=== PATIENT | female | born 1990 | race Hispanic/Latino ===

== ENCOUNTER 2017-11-21 22:18 | Inpatient (IN) | payer MEDICAID ==
[2017-11-21 23:08] LABS: BASO % 0.3 % (0.0-2.0); EOS % 0.2 % (0.0-4.0); HEMOGLOBIN 12.8 g/dL (11.0-16.0); LYMPH # 1.6 K/uL (1.0-4.3); MEAN CORPUSCULAR HEMOGLOBIN 30.6 pg (27.0-31.0); MEAN CORPUSCULAR HGB CONC 35.2 g/dL (33.0-37.0); MEAN PLATELET VOLUME 8.3 fL (7.2-11.7); MONO # 0.4 K/uL (0.0-0.8); MONO % 7.5 % (0.0-10.0); RBC 4.19 Mil/uL (3.80-5.20); RED CELL DISTRIBUTION WIDTH 12.7 % (11.5-14.5)
[2017-11-21 23:13] LABS: SQUAMOUS EPITHIAL 3 /hpf (0-5); URINE BACTERIA RARE (<OCC); URINE BILIRUBIN NEGATIVE (NEGATIVE); URINE BLOOD NEGATIVE (NEGATIVE); URINE CLARITY Clear (Clear); URINE COLOR Yellow (YELLOW); URINE GLUCOSE (UA) NORMAL (Normal); URINE LEUKOCYTE ESTERASE NEG Leu/uL (Negative); URINE PROTEIN NEGATIVE (NEGATIVE); URINE UROBILINOGEN NORMAL mg/dL (0.2-1.0)
[2017-11-21 23:14] LABS: HCG,QUALITATIVE URINE NEGATIVE (NEGATIVE)
[2017-11-21 23:31] LABS: ALB/GLOB RATIO 1.5 (1.0-2.1); ALBUMIN 4.4 g/dL (3.5-5.0); ALT/SGPT 26 U/L (9-52); AST/SGOT 20 U/L (14-36); BLOOD UREA NITROGEN 10 mg/dL (7-17); CALCIUM 9.7 mg/dl (8.6-10.4); GFR NON-AFRICAN AMERICAN > 60
[2017-11-21 23:36] LABS: BARBITURATES, UR NEGATIVE (NEGATIVE); PHENCYCLIDINE, UR NEGATIVE (NEGATIVE)
[2017-11-21 23:37] LABS: BENZODIAZEPINES, UR POSITIVE (NEGATIVE); OPIATES, UR POSITIVE (NEGATIVE)
--- NOTE | 2017-11-22 00:54 | C.PDOC ---
History Of Present Illness 27 year old female presents to the ED requesting detox for heroin abuse. 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 Patient denies SI/HI, hallucinations, CP, SOB. Time Seen by Provider: 11/21/17 22:36 Chief Complaint (Nursing): Substance Abuse History Per: Patient History/Exam Limitations: no limitations Onset/Duration Of Symptoms: Hrs Current Symptoms Are (Timing): Still Present Suicide/Self Injury Attempted (Context): None Modifying Factor(s): Other (Heroin) Associated Symptoms: denies: Depression, Suicidal Thoughts, Suicidal Plan Recent travel outside of the [place]: No Additional History Per: Patient Past Medical History Reviewed: Historical Data, Nursing Documentation, Vital Signs Vital Signs: Last Vital Signs Temp 98.2 F 11/21/17 22:31 Pulse 97 H 11/21/17 22:31 Resp 18 11/21/17 22:31 BP 124/88 11/21/17 22:31 Pulse Ox 98 11/21/17 22:31 - Medical History PMH: No Chronic Diseases Surgical History: No Surg Hx Family History: States: Unknown Family Hx - Social History Hx Alcohol Use: No Hx Substance Use: Yes - Immunization History Hx Tetanus Toxoid Vaccination: No Hx Influenza Vaccination: No Hx Pneumococcal Vaccination: No Review Of Systems Constitutional: Negative for: Fever, Chills Cardiovascular: Negative for: Chest Pain Respiratory: Negative for: Shortness of Breath Gastrointestinal: Negative for: Nausea, Vomiting, Abdominal Pain Skin: Negative for: Rash Psych: Negative for: Depression, Suicidal ideation Physical Exam - Physical Exam Appears: Non-toxic, No Acute Distress Skin: Normal Color, Warm, Dry Head: Atraumatic, Normacephalic Eye(s): bilateral: Normal Inspection Neck: Normal ROM, Supple Chest: Symmetrical Cardiovascular: Rhythm Regular Respiratory: Normal Breath Sounds, No Rales, No Rhonchi, No Wheezing Gastrointestinal/Abdominal: Soft, No Tenderness, No Guarding, No Rebound Extremity: Normal ROM, No Tenderness, No Swelling Neurological/Psych: Oriented x3, Normal Speech Gait: Steady ED Course And Treatment - Laboratory Results Result Diagrams: 11/21/17 23:01 11/21/17 23:15 O2 Sat by Pulse Oximetry: 98 (ON RA) Pulse Ox Interpretation: Normal Progress Note: Plan: -Labs. - UA. - Crisis evaluation. Pt appeared anxious and is requesting medications for her anxiety. Po xanax ordered. Pt is medically cleared for crisis evaluation. Pt was evaluated by crisis counselor and is admitted to dr [place] service for detox. 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 - Scribe Statement The provider has reviewed the documentation as recorded by the Scribe Higinio Lopez All medical record entries made by the Abilio were at my direction and personally dictated by me. I have reviewed the chart and agree that the record accurately reflects my personal performance of the history, physical exam, medical decision making, and the department course for this patient. I have also personally directed, reviewed, and agree with the discharge instructions and disposition.
--- NOTE | 2017-11-22 03:18 | PCM.BM ---
<Cr Peng - Last Filed: 11/22/17 03:17> Treatment Plan Problems - Problems identified on initial assessmt Problem 1 Date Initiated: 11/22/17 Time Initiated: 03:17 Assessment reference: NA Status: Active Comment: heroin abuse Treatment assets and liabiliti Patient Assests: self-reliant, ADL independent Patient Liabilities: poor support system, substance abuse - Milieu Protocol Maintain good personal hygiene: daily Encourage regular showers, daily Remind patient to perform daily oral care, daily Assist patient to perform ADL's Conduct patient checks and document Observation sheet: Q15 minutes Maintain personal safety: every shift Educate patient to report safety concerns to staff, every shift Monitor environment for contraband/sharps Medication safety: Monitor for expected outcome, potential side effects: every shift, Assess barriers to learning: every shift, Assess readiness for medication education: every shift <Alice Zafar - Last Filed: 11/22/17 23:28> - Diagnosis (1) Cocaine use disorder, severe, dependence Status: Acute Interventions: 11/22/17 23:28 * Assess 7x/week regarding severity of withdrawal * Educate regarding risks, benefits, side effects and alternatives of medications * Use Motivational Interviewing for abstinence * Use CBT for relapse prevention * Medication management for withdrawal symptoms * Encourage medication assisted treatment * (2) Opioid use disorder, severe, dependence Status: Acute Interventions: 11/22/17 23:28 * Assess 7x/week regarding severity of withdrawal * Educate regarding risks, benefits, side effects and alternatives of medications * Use Motivational Interviewing for abstinence * Use CBT for relapse prevention * Medication management for withdrawal symptoms * Encourage medication assisted treatment * <Chacha Stokes - Last Filed: 11/25/17 09:36> Family Contact Family involvement: Famliy/SO not involved - Goals for Treatment Patient goals for treatment: Complete detox and transition to an IOP. Discharge/Continuing Care - Education Needs Education Needs: Patient Medication, Patient Diagnosis/Disease Process, Patient Coping Skills, Patient Anger Management skills, Patient Placement options, Patient Community resources - Discharge Discharge Criteria: No longer exhibiting s/s of withdrawal, Reduction of target symptoms Discharge to:: Home, With Family - Treatment Team Participation Patient/Family/SO Statement: 11/25/17 09:36 "I'll consider a SHORT-TERM PROGRAM BUT i'D RATHER DO iop." Discussed with Family/SO: No Was Patient/Family/SO present at Treatment Team Meeting: Yes
[2017-11-22] MEDS ORDERED: Aluminum Hydroxide/Magnesium Hydroxide Susp (30 mL) PO PRN (10:26)
[2017-11-22] MEDS: Multiple Vitamins Tab PO SCH (10:37)
--- NOTE | 2017-11-22 15:30 | PCM.PSYCH ---
Addendum entered and electronically signed by Alice Zafar MD 11/22/17 23:29: I attest that I have interviewed the pt and reviewed the chart and participated and agree with the following assessment and plan. Correction: Total duration was 32 min Original Note: Initial Psychiatric Evaluation - Initial Psychiatric Evaluation Type of Admission: Voluntary Legal Status: Capacity Chief Complaint (in patient's own words): "I do drugs." History of Present Illness and Precipitating Events: Patient seen, chart reviewed, case discussed with staff. Ms. Jaeger is a single 27 year old female with PMH depression, anxiety coming to [facility] detox for the first time. She has been to ~10-15 other detox centers and ~10 rehabs prior to this admission. She has no children. She is currently jobless and lives between her boyfriend and sister. She's been using up to 40 bags of IV heroin on and off for the last 14 years, averaging 30 bags a day. Sometimes uses IV crack cocaine, Xanax. Her longest length of sobriety was 6 months before her relapse 1 month ago. Her last use was at 4pm yesterday, 4 hours prior to arriving in the ED. Admits to 1 ppd tobacco, denies EtOH or other illicit drugs. Psych: depression, anxiety. previously on Xanax, Atarax PMH: denies FamHx: unknown ED: BAL - <10, UDS + for opiates, cocaine, benzos. Given Xanax. Current Medications: Active Medications Generic Name Dose Route Start Last Admin Trade Name Freq PRN Reason Stop Dose Admin Al Hydrox/Mg Hydrox/Simethicone 30 ml 11/22/17 10:26 Maalox 30 Ml PO TID PRN Indigestion / Heartburn Clonidine HCl 0.1 mg 11/22/17 10:26 Catapres PO Q8 PRN COWS Score More or Equal to 5 Hydroxyzine HCl 50 mg 11/22/17 10:04 Atarax PO Q6H PRN Anxiety Ibuprofen 600 mg 11/22/17 09:32 11/22/17 09:40 Motrin Tab PO 600 mg Q6 PRN Administration moderate pain 4-7 Loperamide HCl 2 mg 11/22/17 10:26 Imodium PO Q8 PRN Diarrhea Methadone HCl 15 mg 11/23/17 10:00 Methadone PO 11/26/17 09:59 Q24H TEN Taper Multivitamins 1 tab 11/22/17 10:30 11/22/17 10:37 Hexavitamin PO 1 tab DAILY TEN Administration Nicotine 1 patch 11/22/17 10:30 11/22/17 10:37 Nicoderm Cq TD 1 patch DAILY TEN Administration Ondansetron HCl 4 mg 11/22/17 10:27 Zofran Tab PO Q8 PRN Nausea/Vomiting Trazodone HCl 100 mg 11/22/17 22:00 Desyrel PO HS TEN Past Psychiatric History - Past Psychiatric History Pertinent Medical Hx (Current Medical&Sleep Prob, Allergies): Allergies Allergy/AdvReac Type Severity Reaction Status Date / Time shellfish derived Allergy Verified 11/21/17 22:35 No Known Home Med 11/21/17 Review of Systems - Psychiatric Psychiatric: Abnormal Sleep Pattern, Anxiety, Depression, Difficulty Concentrating, Irritability. absent: Auditory Hallucinations, Hallucinations, Homicidal Ideation, Memory Loss, Suicidal Ideation, Visual Hallucinations, Tactile Hallucinations Mental Status Examination - Personal Presentation Personal Presentation: Looks stated age - Affect Affect: Broad - Motor Activity Motor Activity: Calm - Reliability in Providing Information Reliability in Providing Information: Fair - Speech Speech: Organized - Mood Mood: Anxious - Formal Thought Process Formal Thought Process: No Impairment - Cognitive Functions Orientation: Person, Place, Situation, Time Sensorium: Alert Attention/Concentration: Attentive Abstract Thinking: [place] Estimate of Intelligence: Average Judgement: Intact, as evidence by: Insight regarding need for hospitalization Memory: Recent intact, as evidence by: Ability to recall events of the day, Remote intact, as evidenced by: Abilit to recall sig. life events - Risk Risk: Withdrawal, Diminished functioning - Strength & Assets Inventory Strength & Assets Inventory: Cooperative DSM 5 DX - DSM 5 DSM 5 Diagnosis: Opiate use disorder - severe Opiate withdrawal Cocaine use disorder - moderate Benzo use disorder, unspecified - Recommended/Plan of Treatment Treatment Recommendations and Plan of Treatment: Taper with Methadone Gabapentin for augmentation if needed Trazodone for sleep As needed medication All risks, benefits, and alternatives of the meds discussed, and the patient agreed and understood. Attend groups and activities Supportive therapy and psychoeducation MT for abstinence CBT for relapse prevention Encourage MAT Refer to rehab or IOP, and self-help groups Smoking cessation with MT, nicotine patch daily. 28 min - Smoking Cessation Smoking Cessation Initiated: Yes
[2017-11-23] MEDS: Multiple Vitamins Tab PO SCH (09:20)
--- NOTE | 2017-11-23 15:19 | PCM.PYCHPN ---
Psychiatric Progress Note - Psychiatric Progress Note Patient seen today, length of contact: 18 minutes Patient Chief Complaint: "I'm still withdrawing" Problems Identified/Issues Discussed: The pt is seen, chart reviewed, case discussed with staff. The pt is compliant with medications and reports no side-effects. Symptoms are improving but needs more time to stabilize. she first said she wanted to leave on and so she didn't want slow detox but now she states she can stay until Wednesday and asked for the additional 5 mg because she was "withdrawing." Pt attends groups and activities. Support given, psycho-education provided. After care discussed. Medication Change: Yes (detox changes daily) Medical Record Reviewed: Yes Mental Status Examination - Cognitive Function Orientation: Person, Place, Situation, Time Memory: Intact Attention: Poor Concentration: WNL Association: WNL Fund of Knowledge: WNL - Mood Mood: Anxious - Affect Affect: Broad - Speech Speech: Appropriate - Formal Thought Process Formal Thought Process: No Impairment - Suicidal Ideation Suicidal Ideation: No - Homicidal Ideation Homicidal Ideation: No Goal/Treatment Plan - Goal/Treatment Plan Need for Continued Stay: Discharge may exacerbated symptoms, Severe functional impairment Progress Toward Problem(s) and Goals/Treatment Plan: Continue medications add 5 mg of methadone additional Support and psychoeducation daily Attend groups and activities daily After care planning by GORDO
[2017-11-24] MEDS: Multiple Vitamins Tab PO SCH (09:56)
--- NOTE | 2017-11-24 13:48 | PCM.PYCHPN ---
Psychiatric Progress Note - Psychiatric Progress Note Patient seen today, length of contact: 17 min Patient Chief Complaint: "I can't sleep" Problems Identified/Issues Discussed: The pt is seen, chart reviewed, case discussed with staff. Support and psychoeducation given, CBT and NM used briefly No new symptoms reported, improving slowly and needs more time Additional methadone and seroquel added No SEs from medications, risks discussed. After care discussed Medication Change: Yes (detox changes daily) Medical Record Reviewed: Yes Mental Status Examination - Cognitive Function Orientation: Person, Place, Situation, Time Memory: Intact Attention: Poor Concentration: WNL Association: WNL Fund of Knowledge: WNL - Mood Mood: Anxious - Affect Affect: Broad - Speech Speech: Appropriate - Formal Thought Process Formal Thought Process: No Impairment - Suicidal Ideation Suicidal Ideation: No - Homicidal Ideation Homicidal Ideation: No Goal/Treatment Plan - Goal/Treatment Plan Need for Continued Stay: Discharge may exacerbated symptoms, Severe functional impairment Progress Toward Problem(s) and Goals/Treatment Plan: Continue medications add 5 mg of methadone additional and HS seroquel Support and psychoeducation daily Attend groups and activities daily After care planning by counselors Estimated Date of D/C: 11/26/17
[2017-11-25] MEDS: Multiple Vitamins Tab PO SCH (09:20)
[2017-11-25 16:49] VITALS: TEMP 98.2
--- NOTE | 2017-11-25 22:07 | PCM.PYCHPN ---
Psychiatric Progress Note - Psychiatric Progress Note Patient seen today, length of contact: 17 min Patient Chief Complaint: I m withdrawing.' Problems Identified/Issues Discussed: Patient seen and evaluated, chart reviewed and discussed with the nurse. Supportive therapy and psychoeducation were given. Patient reports some improvement in her mood than yesterday but still reports withdrawal symptoms including, cramps, nausea, anxiety and headaches. Patient reports some anxiety but denies any suicidal ideation or homicidal ideation. She denies any auditory or visual hallucinations. She is tolerating the withdrawal medications and denies any side effects. Medication Change: Yes (detox changes daily) Medical Record Reviewed: Yes Mental Status Examination - Cognitive Function Orientation: Person, Place, Situation, Time Memory: Intact Attention: Poor Concentration: WNL Association: WNL Fund of Knowledge: WNL - Mood Mood: Anxious - Affect Affect: Broad - Speech Speech: Appropriate - Formal Thought Process Formal Thought Process: No Impairment - Suicidal Ideation Suicidal Ideation: No - Homicidal Ideation Homicidal Ideation: No Goal/Treatment Plan - Goal/Treatment Plan Need for Continued Stay: Discharge may exacerbated symptoms, Severe functional impairment Progress Toward Problem(s) and Goals/Treatment Plan: Opiate use disorder - severe Opiate withdrawal Cocaine use disorder - moderate Benzo use disorder, unspecified Taper with Methadone Gabapentin for augmentation if needed Trazodone for sleep As needed medication All risks, benefits, and alternatives of the meds discussed, and the patient agreed and understood. Attend groups and activities Supportive therapy and psychoeducation MA for abstinence CBT for relapse prevention Encourage MAT Refer to rehab or IOP, and self-help groups Smoking cessation with MA, nicotine patch daily. Estimated Date of D/C: 11/26/17 - Smoking Cessation Smoking Cessation Initiated: No
--- NOTE | 2017-11-26 08:18 | PCM.PYCHDC ---
Mental Status Examination - Mental Status Examination Orientation: Person, Place, Situation, Time Memory: Intact Mood: Depressed Affect: Constricted Speech: Appropriate Attention: WNL Concentration: WNL Association: WNL Fund of Knowledge: WNL Formal Thought Process: No Impairment Suicidal Ideation: No Current Homicidal Ideation?: No Discharge Summary - Discharge Note Reason for Hospitalization: Opioid detox Consultations:: List each consultation separately and include: 1. Reason for request. 2. Findings. 3. Follow-up Summary of Hospital Course include:: 1. Description of specific treatment plan utilized for patients during their course of treatmen. 2. Summarize the time- course for resolution of acute symptoms and/or regressed behaviors. 3. Describe issues identified and worked on during hospitalization. 4. Describe medication utilized. 5. Describe medical problems identified and treated. 6. Reassessment of suicide risk Summary of Hospital Course: The pt was admitted and started on treatment with psychotherapy, support, psychoeducation and medications. VT and CBT used. The pt attended groups and activities, as well as milieu therapy. All the risks and benefits of medications are discussed and the patient understood and agreed. The pt improved with the treatments provided. After care discussed with the patient. She went to [facility] - Final Diagnosis (DSM 5) Condition upon Discharge: STABLE DSM 5: Opiate use disorder - severe Opiate withdrawal Cocaine use disorder - moderate Benzo use disorder, unspecified Disposition: HOME/ ROUTINE Follow-up Treatment Plan: Continue below medications after discharge. Follow after care plan as discussed. Use relapse prevention skills Return to ER or call 911 if suicidal, homicidal or symptoms relapse. Stay away from stress, alcohol and drugs. See primary doctor regularly and get labs. Prescriptions/Medication Reconciliation: Cyclobenzaprine [Flexeril] 5 mg PO BID #60 tab hydrOXYzine HCl [Atarax] 50 mg PO DAILY PRN #30 tab PRN Reason: Anxiety QUEtiapine [Seroquel] 100 mg PO HS #30 tab traZODone [Desyrel] 100 mg PO HS #30 tab
[2017-11-26] MEDS: Multiple Vitamins Tab PO SCH (09:42)
[2017-11-26 11:15] VITALS: BP 114/84; PULSE 89; RESP 19; O2SAT 99
== END 2017-11-26 11:28 | disposition home or self-care (01) | DRG 772 ==
LOC: C.ER 22:18 → C.7D 11-22 02:49
PROC: HZ52ZZZ Individual Psychotherapy for Substance Abuse Treatment, Cognitive-Behavioral (ICD-10-PCS; principal; 2017-11-22)
PROC: HZ2ZZZZ Detoxification Services for Substance Abuse Treatment (ICD-10-PCS; 2017-11-22)
PROC: HZ59ZZZ Individual Psychotherapy for Substance Abuse Treatment, Supportive (ICD-10-PCS; 2017-11-22)
PROC: HZ56ZZZ Individual Psychotherapy for Substance Abuse Treatment, Psychoeducation (ICD-10-PCS; 2017-11-22)
PROC: HZ42ZZZ Group Counseling for Substance Abuse Treatment, Cognitive-Behavioral (ICD-10-PCS; 2017-11-22)
PROC: HZ46ZZZ Group Counseling for Substance Abuse Treatment, Psychoeducation (ICD-10-PCS; 2017-11-22)
PROC: GZHZZZZ Group Psychotherapy (ICD-10-PCS; 2017-11-22)
PROC: GZ58ZZZ Individual Psychotherapy, Cognitive-Behavioral (ICD-10-PCS; 2017-11-22)
PROC: GZ56ZZZ Individual Psychotherapy, Supportive (ICD-10-PCS; 2017-11-22)
DX: F11.23 Opioid dependence with withdrawal (principal); F14.20 Cocaine dependence, uncomplicated; F13.10 Sedative, hypnotic or anxiolytic abuse, uncomplicated; F17.210 Nicotine dependence, cigarettes, uncomplicated; F41.9 Anxiety disorder, unspecified